=== PATIENT | female | born 1985 | race Caucasian/White ===

== ENCOUNTER 2016-08-28 08:57 | Emergency (ER) | payer OTHER ==
[~2016-08-28] VITALS: Ht 172.7 cm; Wt 96.2 kg
[~2016-08-28 08:57] MED LIST: AUGMENTIN875 MG PO; CLARITIN-D 21 TABLET PO; DIFLUCAN200 MG PO; FLONASE16 G1 BOTH NARES; PERCOCET 5/31 TABLET PO; PROAIR HFA8.5 GM IH; ULTRACET1 TABLET PO
[2016-08-28] MEDS ORDERED: FLEXERIL10 MG PO (11:30)
[2016-08-28 11:40] VITALS: BP 112/59
== END 2016-08-28 11:43 | disposition home or self-care (01) ==
LOC: EME 08:57
DX: S39.012A Strain of muscle, fascia and tendon of lower back, initial encounter (principal); M25.552 Pain in left hip; M79.605 Pain in left leg; W10.9XXA Fall (on) (from) unspecified stairs and steps, initial encounter; J45.909 Unspecified asthma, uncomplicated; F17.200 Nicotine dependence, unspecified, uncomplicated
CPT/HCPCS: 72131; 72170; 99281; 99284

== ENCOUNTER 2017-02-01 05:35 | Day surgery (SDC) | payer OTHER ==
[~2017-02-01] VITALS: Ht 170.2 cm; Wt 90.9 kg
[~2017-02-01 05:35] MED LIST changes: +BENADRYL25 MG PO; +FLEXERIL10 MG PO; +TYLENOL EXTRA500 MG PO
[2017-02-01 06:36] VITALS: BP 119/67
[2017-02-01 13:10] VITALS: BP 122/74
[2017-02-01 15:10] VITALS: BP 106/61
[2017-02-01 15:49] LABS: HEMATOCRIT 34.1 % (36.0-46.0); MCV 80.6 FL (83-99)
[2017-02-01 20:22] VITALS: BP 112/55
[2017-02-01 23:58] VITALS: BP 100/53
[2017-02-02 04:00] VITALS: BP 113/58
[2017-02-02 06:28] LABS: HEMATOCRIT 29.5 % (36.0-46.0); MCH 24.1 PG (29.0-34.0); MCHC 30.2 G/DL (30.0-36.0); MCV 79.7 FL (83-99); MEAN PLAT.VOLUME 10.9 uM^3 (9.5-12.4); PLATELET COUNT 228 K/uL (156-360); RBC DIS.WIDTH-CV 17.1 % (11.8-14.6); RBC DIS.WIDTH-SD 48.9 % (39-53); WHITE BLOOD COUNT 10.2 K/uL (4.1-10.2)
[2017-02-02 06:55] LABS: ANION GAP 6 MEQ/L (2-14); CHLORIDE 108 MEQ/L (99-109); GFR ESTIMATE (CALCULATED) > 59 mL/min/; GLUCOSE 127 mg/dL (70-99); POTASSIUM 3.9 MEQ/L (3.7-5.4); SAMPLE HEMOLYSIS CHECK 0; SAMPLE ICTERIC CHECK 0; SAMPLE LIPEMIA CHECK 0; SODIUM 138 MEQ/L (136-147); UREA NITROGEN (BUN) 10 mg/dL (9-23)
[2017-02-02 08:05] VITALS: BP 119/72
[2017-02-02 08:54] VITALS: BP 110/62
[2017-02-02] MEDS ORDERED: MOTRIN800 MG PO (11:50)
[2017-02-02] MEDS ORDERED: NICOTINE PATCH1 EAC1 TD (11:50)
[2017-02-02] MEDS ORDERED: ENDOCET 5-3251 EACH PO (11:50)
== END 2017-02-02 12:48 | disposition home or self-care (01) ==
LOC: SDC 05:35 → 2SOUTH 11:13 → 2EAST 11:13 → ENRESERV 11:14 → 2EAST 12:55 → SDC 13:27 → 2EAST 02-02 12:48
PROVIDERS: Obstetrics & Gynecology
DX: N80.0 Endometriosis of uterus (principal); N88.2 Stricture and stenosis of cervix uteri; R10.2 Pelvic and perineal pain
CPT/HCPCS: 80048; 85014; 85018; 85027; 88307; 99202; G0378; J0131; J0690; J1100; J1170; J1885; J2250; J2405; J2710; J3010; J7120; S0020